=== PATIENT | female | born 1955 | race Caucasian/White ===

== ENCOUNTER 2016-07-12 14:53 | Outpatient (CLI) | payer OTHER ==
[2016-07-12 15:30] LABS: ALT (SGPT) 22 U/L (0-55); AST (SGOT) 23 U/L (5-34); Alkaline Phosphatase 116 U/L (40-150); Anion Gap 13 mmol/L (10-20); BUN (Urea Nitrogen) 11 mg/dL (9.8-20.1); Bilirubin, Total 0.9 mg/dL (0.2-1.2); Calc. Creatinine Clearance 0 mL/min (70-130); Calcium 9.4 mg/dL (7.8-10.44); Carbon Dioxide 25 mmol/L (22-29); Chloride 104 mmol/L (98-107); Estimated GFR-MDRD 70; Globulin 3.8 g/dL (2.4-3.5); Protein, Total 7.8 g/dL (6.0-8.3)
[2016-07-12 16:01] LABS: Hematocrit 42.1 % (36.0-47.0); Mean Platelet Volume 7.6 fL (7.4-10.4); Red Blood Cell (RBC) Count 4.26 mill/uL (4.20-5.40); White Blood Cell (WBC) Count 11.1 thou/uL (4.8-10.8)
[2016-07-12 16:03] LABS: Band 2 % (5-11); Metamyelocyte 0 % (0-0); Neutrophil 62 % (42-75); Reactive Lymphocytes 0 % (0-10)
[2016-07-12 16:04] LABS: Blast 0 % (0-0); Myelocyte 0 % (0-0); Nucleated RBC 0 % (0); Promyelocytes 0 % (0-0)
== END 2016-07-12 14:54 | disposition home or self-care (01) ==
LOC: BURLAB 14:53
PROVIDERS: ATTEND Internal Medicine Rheumatology
DX: M05.79 Rheumatoid arthritis with rheumatoid factor of multiple sites without organ or systems involvement (principal); Z79.899 Other long term (current) drug therapy
CPT/HCPCS: 36415; 80053; 85025

== ENCOUNTER 2016-09-26 10:55 | Outpatient (CLI) | payer OTHER ==
[2016-09-26 11:37] LABS: ALT (SGPT) 22 U/L (0-55); AST (SGOT) 27 U/L (5-34); Albumin 4.1 g/dL (3.4-4.8); Alkaline Phosphatase 117 U/L (40-150); Anion Gap 12 mmol/L (10-20); BUN (Urea Nitrogen) 14 mg/dL (9.8-20.1); Bilirubin, Total 0.7 mg/dL (0.2-1.2); Calc. Creatinine Clearance 0 mL/min (70-130); Calcium 9.6 mg/dL (7.8-10.44); Carbon Dioxide 27 mmol/L (23-31); Chloride 106 mmol/L (98-107); Estimated GFR-MDRD 69; Globulin 3.6 g/dL (2.4-3.5); Glucose 98 mg/dL (80-115); Potassium 3.7 mmol/L (3.5-5.1); Protein, Total 7.7 g/dL (5.8-8.1); Sodium 141 mmol/L (136-145)
[2016-09-26 13:11] LABS: #Basophils 0.1 thou/uL (0.0-0.2); #Eosinphils 0.2 thou/uL (0.0-0.7); #Monocytes 1.2 thou/uL (0.11-0.59); #Neutrophils 3.7 thou/uL (1.40-6.50); %Basophils 0.6 % (0.0-1.0); %Eosinophils 1.7 % (0.0-10.0); %Lymphocytes 49.8 % (21.0-51.0); %Monocytes 11.6 % (0.0-10.0); %Neutrophils 36.3 % (42.0-75.0); Hemoglobin 14.1 g/dL (12.0-16.0); Mean Corpuscular HGB CONC 33.2 g/dL (32.0-36.0); Mean Corpuscular Hemoglobin 32.3 pg (27.0-31.0); Mean Corpuscular Volume 97.1 fl (81.0-99.0); Mean Platelet Volume 8.1 fL (7.4-10.4); Platelet Count 187 thou/uL (130-400); RBC Distribution Width 14.5 % (11.5-14.5); Red Blood Cell (RBC) Count 4.38 mill/uL (4.20-5.40); White Blood Cell (WBC) Count 10.1 thou/uL (4.8-10.8)
== END 2016-09-26 10:56 | disposition home or self-care (01) ==
LOC: BURLAB 10:55
PROVIDERS: ATTEND Internal Medicine Rheumatology
DX: M05.79 Rheumatoid arthritis with rheumatoid factor of multiple sites without organ or systems involvement (principal); Z79.899 Other long term (current) drug therapy
CPT/HCPCS: 36415; 80053; 85025; 85652

== ENCOUNTER 2017-01-17 07:29 | Outpatient (CLI) | payer OTHER ==
[2017-01-17 08:49] LABS: Eosinophils 3 % (0-10); Hemoglobin 13.4 g/dL (12.0-16.0); Lymphocytes 65 % (21-51); MDiff Complete? YES; Mean Corpuscular HGB CONC 34.3 g/dL (32.0-36.0); Mean Corpuscular Hemoglobin 33.3 pg (27.0-31.0); Mean Platelet Volume 7.2 fL (7.4-10.4); Monocytes 7 % (0-10); Neutrophil 25 % (42-75); Platelet Count 166 thou/uL (130-400); RBC Distribution Width 12.8 % (11.5-14.5); Red Blood Cell (RBC) Count 4.02 mill/uL (4.20-5.40); White Blood Cell (WBC) Count 7.7 thou/uL (4.8-10.8)
[2017-01-17 09:20] LABS: ALT (SGPT) 25 U/L (8-55); AST (SGOT) 29 U/L (5-34); Albumin 3.9 g/dL (3.4-4.8); Alkaline Phosphatase 104 U/L (40-150); Anion Gap 14 mmol/L (10-20); BUN (Urea Nitrogen) 12 mg/dL (9.8-20.1); Bilirubin, Total 0.8 mg/dL (0.2-1.2); Calc. Creatinine Clearance 0 mL/min (70-130); Calcium 9.1 mg/dL (7.8-10.44); Carbon Dioxide 26 mmol/L (23-31); Chloride 103 mmol/L (98-107); Estimated GFR-MDRD 76; Globulin 3.1 g/dL (2.4-3.5); Glucose 70 mg/dL (80-115); Potassium 4.2 mmol/L (3.5-5.1); Sodium 139 mmol/L (136-145)
== END 2017-01-17 07:30 | disposition home or self-care (01) ==
LOC: BURLAB 07:29
PROVIDERS: ATTEND Internal Medicine Rheumatology
DX: M05.79 Rheumatoid arthritis with rheumatoid factor of multiple sites without organ or systems involvement (principal); Z79.899 Other long term (current) drug therapy
CPT/HCPCS: 36415; 80053; 85025; 85652

== ENCOUNTER 2017-02-28 17:33 | Emergency (ER) | payer OTHER ==
[2017-02-28] MEDS ORDERED: Ketorolac Tromethamine 30 MG/ML VIAL ONE (17:41)
--- NOTE | 2017-02-28 21:37 | RAD ---
RIGHT LEG TWO VIEWS: 02/28/17 The tibial and fibular shafts appears intact. Sclerotic areas in the distal tibia and fibula have be en seen previously and are presumed to be referable to an old injury. There is some irregularity of the tibial plateau that is indeterminate on these two films. See knee report to follow. IMPRESSION: 1. The bulk of the tibia and fibula appear intact. 2. See knee report for comments regarding tibial plateau. POS: HOME
--- NOTE | 2017-02-28 22:03 | RAD ---
RIGHT KNEE FOUR VIEWS: 02/28/17 There is some sclerosis of the lateral tibial plateau and maybe even a slight amount of depression o f it. On the lateral view, one sees a very subtle vertical line in the proximal tibial shaft that is rather sharp. Also, there seems to be a little discontinuity in the white line of the lateral tibia l plateau on the lateral. A small joint effusion is present. All of these findings worry me about th is being an acute injury to the lateral tibial plateau. This could represent a compression in bones that are somewhat osteopenic. Further imaging is recommended to be certain. IMPRESSION: Findings suggestive of injury to the lateral tibial plateau. Although it is not entirely clear if it is acute or old, given the joint fluid and some of the findings, it should probably be treated as a cute until proven otherwise. CT or MRI of the knee could be helpful. Findings discussed with Dr. Verde at 1940 on 02/28. POS: HOME
--- NOTE | 2017-02-28 22:06 | RAD ---
RIGHT ANKLE THREE VIEWS 02/28/17 Comparison is made with a 08/27 study. Mild sclerosis of the distal tibial is consistent with a prior injury. There also appears to have be en an old injury of the distal fibular shaft. These finding actually have smoothed out some since august study. IMPRESSION: Old changes, but no acute fractures were identified. POS: HOME
--- NOTE | 2017-02-28 23:33 | CT ---
CT OF THE RIGHT KNEE 02/28/[address] of the knee was done for evaluation of abnormal findings on the patient's knee films. Ther e is a history of relatively minor trauma and lateral side pain. Axial slices were acquired, then co jaime and sagittal reconstructions were done. There is a depressed fracture of the lateral tibial plateau. The amount of depression is on the orde r of 5 to 7 mm. There is slight fragmentation of the articular surface. Some sclerotic areas are pre sumed to be compression of the bone. There is a resulting joint effusion that has a fluid-fat level within it, as might be expected. The medial tibial plateau appears intact. IMPRESSION: Depressed fracture of the lateral tibial plateau with involvement of the articular surface. It is a recent injury, as evidenced by the sharp lines and fat-fluid level in the joint fluid. My significant concern is that this happened in a relatively young patient with fairly minimal traum a. There is a prior history of an impacted fracture of the distal tibia and fibula. The findings cou ld be merely due to premature osteopenia. Nevertheless, the findings are unusual in the age group an d further workup of an underlying cause should be considered. Preliminary report discussed with Dr. Verde at 637 on 02/28/17. POS: HOME
== END 2017-02-28 19:10 | disposition home or self-care (01) ==
LOC: BURERS 17:33
DX: S82.141A Displaced bicondylar fracture of right tibia, initial encounter for closed fracture (principal); M06.9 Rheumatoid arthritis, unspecified; X50.1XXA Overexertion from prolonged static or awkward postures, initial encounter
CPT/HCPCS: 96374; J1885

== ENCOUNTER 2017-03-14 09:28 | Inpatient (IN) | payer OTHER ==
[2017-03-14 14:08] VITALS: BMI 26.9
[2017-03-14] MEDS ORDERED: HYDROcodone/Acetaminophen 5/325 mg Tablet PO PRN ×2 (15:04)
[2017-03-14] MEDS ORDERED: ETANERCEPT 50 MG SC SCH (15:30)
[2017-03-14] MEDS: Acetaminophen 500 MG TAB PO PRN (16:46)
[2017-03-14] MEDS ORDERED: Ascorbic Acid 500 mg Chewable Tablet PO SCH (19:15)
[2017-03-14] MEDS ORDERED: Calcium Carbonate + Vit D 1 TAB PO SCH (19:15)
[2017-03-14] MEDS: [UNRECOGNIZED DRUG - OTHER] PO SCH (20:38)
[2017-03-14] MEDS: MANGANESE PO SCH (20:39)
[2017-03-14] MEDS: GLUCOSAMINE PO SCH (20:39)
[2017-03-15] MEDS: Fish Oil 1,000 MG CAP PO SCH (08:45)
[2017-03-15] MEDS: Magnesium Oxide 400 MG TAB PO SCH (08:45)
[2017-03-15] MEDS: Ascorbic Acid 500 mg Chewable Tablet PO SCH (08:45)
[2017-03-15] MEDS: predniSONE 10 MG TAB PO SCH (08:46)
[2017-03-15] MEDS: Enoxaparin Sodium 40 MG/0.4 ML SYRINGE SC SCH (08:46)
[2017-03-15] MEDS: GLUCOSAMINE PO SCH ×2 (08:59→20:33)
[2017-03-15] MEDS: [UNRECOGNIZED DRUG - OTHER] PO SCH ×2 (08:59→20:33)
[2017-03-15] MEDS: MANGANESE PO SCH ×2 (08:59→20:33)
[2017-03-15] MEDS: Acetaminophen 500 MG TAB PO PRN (09:45)
[2017-03-15] MEDS ORDERED: Docusate 100 MG CAP PO SCH (10:00)
[2017-03-15] MEDS: Docusate 100 MG CAP PO SCH (20:32)
[2017-03-16] MEDS: Ascorbic Acid 500 mg Chewable Tablet PO SCH (08:00)
[2017-03-16] MEDS: Acetaminophen 500 MG TAB PO PRN (08:02)
[2017-03-16] MEDS: Docusate 100 MG CAP PO SCH ×2 (08:02→20:36)
[2017-03-16] MEDS: predniSONE 10 MG TAB PO SCH (08:03)
[2017-03-16] MEDS: Magnesium Oxide 400 MG TAB PO SCH (08:03)
[2017-03-16] MEDS: Fish Oil 1,000 MG CAP PO SCH (08:03)
[2017-03-16] MEDS: MANGANESE PO SCH ×2 (08:04→20:37)
[2017-03-16] MEDS: Enoxaparin Sodium 40 MG/0.4 ML SYRINGE SC SCH (08:04)
[2017-03-16] MEDS: GLUCOSAMINE PO SCH ×2 (08:04→20:37)
[2017-03-16] MEDS: [UNRECOGNIZED DRUG - OTHER] PO SCH ×2 (08:05→20:37)
--- NOTE | 2017-03-16 13:40 | HP ---
CHIEF COMPLAINT: Inpatient rehab for physical and occupational therapy. HISTORY OF PRESENT ILLNESS: Ms. Santiago is a very pleasant 61-year-old female with history of rheumatoid arthritis, on methotrexate and Enbrel. While at work at [employer] on 02/28, while trying to move a patient from bed to chair with a gait belt, her patient had left-sided stroke. Ms. Santiago was unable to get her to the wheelchair as the patient made no effort to push with her right leg. Ms. Santiago aborted the effort to place the patient on a wheelchair, but as she turned, her right knee got caught between the railing and the full weight of the patient's leg. She felt and heard a pop on her right knee with immediate pain and swelling laterally. At that point , she could not apply full weight on the right leg. She was taken to the emergency room, where regular films showed an abnormality and subsequent CT scan then showed a tibial plateau fracture laterally. Ms. Santiaog underwent open reduction and internal fixation of the right tibial plateau fracture on . She is being admitted for physical and occupational therapy. She is nonweightbearing on the affected extremity. She has decreased endurance strength, unsteady gait and poor balance. She is able to stand with a rolling walker. Today, she ambulated about 94 feet with contact guard assist. Patient requires Tylenol for pain control; she refused to take strong narcotics. PAST MEDICAL HISTORY: 1. Rheumatoid arthritis. 2. Recurrent urinary tract infection. 3. Depression. PAST SURGICAL HISTORY: 1. Hysterectomy in 1999. 2. Bilateral tubal ligation. 3. Bladder suspension. 4. Open reduction of right tibial plateau fracture. FAMILY HISTORY: Father of unknown cause. Mother at 91 years old due to hypertension and heart disease complication. She has 3 sisters, one sister was diagnosed of lung cancer with liver metastasis. Spouse due to lung cancer. She has 2 healthy sons. SOCIAL HISTORY: The patient denies tobacco or alcohol use. The patient is , in 05/2015. 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 HOME MEDICATIONS: 1. Ibuprofen 200 mg every 6 hours p.r.n. for pain. 2. Enbrel. 3. Methotrexate. 4. Prednisone 10 mg daily. 5. Hydrocodone 5/325 one tablet b.i.d. to t.i.d. p.r.n. for pain. ALLERGIES: 1. CIPRO. 2. SULFA. 3. TRAMADOL causing nausea and vomiting. REVIEW OF SYSTEMS: GENERAL: Patient denies fever, chills, weight loss or fatigue. EYES: Positive for blurred vision, wears glasses. CARDIOVASCULAR: No chest pain, no palpitations, no arrhythmia. PULMONARY: No shortness of breath, no cough. GASTROINTESTINAL: No nausea, vomiting or diarrhea. Positive for constipation. GENITOURINARY: Positive for recurrent episodes of UTI. Denies hematuria. MUSCULOSKELETAL: Positive for right leg injury requiring surgery. Positive for pain in the right lower extremity. Positive for swelling of the right lower extremity. PSYCHIATRIC: Mild depression. No anxiety. PHYSICAL EXAMINATION: VITAL SIGNS: Blood pressure of 119/56, temperature of 99, pulse of 67, respiratory rate 18 and O2 sat 97%. GENERAL: The patient is alert, oriented, not in respiratory distress. HEENT: Normocephalic and atraumatic. Pupils are equally reactive to light. NECK: Supple. Negative for lymphadenopathy, negative for JVD. CHEST AND LUNGS: Symmetrical expansion. Clear to auscultation. HEART: Regular rate and rhythm. Negative for murmur. ABDOMEN: Flat, soft and nontender. Normoactive bowel sounds. No rebound tenderness. No CVA tenderness. MUSCULOSKELETAL: Right lower extremity is immobilized with a knee brace. Positive for swelling of the right foot. Positive for intact pulses. Positive for 2 seconds capillary refill. LABORATORY AND IMAGING DATA: Reviewed. ASSESSMENT: 1. Closed fracture of the right tibial plateau, status post open reduction and internal fixation. 2. Rheumatoid arthritis. 3. Depression. 4. Recurrent urinary tract infection. PLAN: The patient is being admitted for physical and occupational therapy. She is nonweightbearing on her right lower extremity. Prognosis for significant improvement with reasonable time appears good. She will participate with PT to address strength, range of motion, transfer training, gait transfers and safety training with progression to home exercises. She will participate with Occupational Therapy to address ADLs. We will reconcile her hospital medication and adjust dosage prior to her discharge. Case management to address how the patient can safely be discharged in a timely manner. Anticipate discharge to home in 1-2 weeks. MICHELLE
[2017-03-17 06:11] LABS: Hemoglobin 11.6 g/dL (12.0-16.0); Platelet Count 224 thou/uL (130-400)
[2017-03-17 06:19] LABS: Calc. Creatinine Clearance 93 mL/min (70-130); Estimated GFR-MDRD Greater than 90
[2017-03-17] MEDS: Acetaminophen 500 MG TAB PO PRN (08:01)
[2017-03-17] MEDS: Docusate 100 MG CAP PO SCH ×2 (08:02→20:37)
[2017-03-17] MEDS: Fish Oil 1,000 MG CAP PO SCH (08:02)
[2017-03-17] MEDS: Ascorbic Acid 500 mg Chewable Tablet PO SCH (08:03)
[2017-03-17] MEDS: predniSONE 10 MG TAB PO SCH (08:03)
[2017-03-17] MEDS: Magnesium Oxide 400 MG TAB PO SCH (08:04)
[2017-03-17] MEDS: Enoxaparin Sodium 40 MG/0.4 ML SYRINGE SC SCH (08:05)
[2017-03-17] MEDS: GLUCOSAMINE PO SCH ×2 (08:05→20:38)
[2017-03-17] MEDS: MANGANESE PO SCH ×2 (08:05→20:38)
[2017-03-17] MEDS: [UNRECOGNIZED DRUG - OTHER] PO SCH ×2 (08:06→20:38)
[2017-03-17] MEDS ORDERED: Polyethylene Glycol OPTH DROP 15 ML BOT EA EYE PRN (17:32)
[2017-03-17] MEDS ORDERED: Zolpidem Tartrate 5 MG TAB PO SCH (17:45)
[2017-03-18] MEDS: Ascorbic Acid 500 mg Chewable Tablet PO SCH (08:42)
[2017-03-18] MEDS: Docusate 100 MG CAP PO SCH ×2 (08:43→20:40)
[2017-03-18] MEDS: Magnesium Oxide 400 MG TAB PO SCH (08:44)
[2017-03-18] MEDS: Fish Oil 1,000 MG CAP PO SCH (08:44)
[2017-03-18] MEDS: predniSONE 10 MG TAB PO SCH (08:45)
[2017-03-18] MEDS: Enoxaparin Sodium 40 MG/0.4 ML SYRINGE SC SCH (08:46)
[2017-03-18] MEDS: [UNRECOGNIZED DRUG - OTHER] PO SCH ×2 (08:46→20:42)
[2017-03-18] MEDS: Acetaminophen 500 MG TAB PO PRN ×2 (08:46→20:40)
[2017-03-18] MEDS: MANGANESE PO SCH ×2 (08:52→20:41)
[2017-03-18] MEDS: GLUCOSAMINE PO SCH ×2 (08:52→20:41)
[2017-03-18] MEDS ORDERED: FLU VACC QS2017-18 36 mo. & older 0.5 ML SYRINGE IM ONE (09:00)
[2017-03-19 06:13] LABS: Calc. Creatinine Clearance 88 mL/min (70-130); Estimated GFR-MDRD Greater than 90
[2017-03-19 06:26] LABS: Hemoglobin 12.5 g/dL (12.0-16.0); Platelet Count 223 thou/uL (130-400)
[2017-03-19] MEDS: predniSONE 10 MG TAB PO SCH (08:25)
[2017-03-19] MEDS: Magnesium Oxide 400 MG TAB PO SCH (08:25)
[2017-03-19] MEDS: Docusate 100 MG CAP PO SCH ×2 (08:25→20:40)
[2017-03-19] MEDS: Ascorbic Acid 500 mg Chewable Tablet PO SCH (08:25)
[2017-03-19] MEDS: Fish Oil 1,000 MG CAP PO SCH (08:25)
[2017-03-19] MEDS: Enoxaparin Sodium 40 MG/0.4 ML SYRINGE SC SCH (08:26)
[2017-03-19] MEDS: [UNRECOGNIZED DRUG - OTHER] PO SCH ×2 (08:27→20:39)
[2017-03-19] MEDS: GLUCOSAMINE PO SCH ×2 (08:28→20:37)
[2017-03-19] MEDS: MANGANESE PO SCH ×2 (08:28→20:37)
[2017-03-19] MEDS: Acetaminophen 500 MG TAB PO PRN ×2 (09:11→20:40)
[2017-03-19] MEDS: METHOTREXATE SODIUM 50 MG IM SCH (11:59)
[2017-03-19] MEDS: ETANERCEPT 50 MG SC SCH (12:00)
[2017-03-19] MEDS ORDERED: Acetaminophen 500 MG TAB ONE (20:31)
[2017-03-20] MEDS: Enoxaparin Sodium 40 MG/0.4 ML SYRINGE SC SCH (08:16)
[2017-03-20] MEDS: [UNRECOGNIZED DRUG - OTHER] PO SCH ×2 (08:16→20:51)
[2017-03-20] MEDS: Docusate 100 MG CAP PO SCH ×2 (08:17→20:51)
[2017-03-20] MEDS: Fish Oil 1,000 MG CAP PO SCH (08:17)
[2017-03-20] MEDS: Ascorbic Acid 500 mg Chewable Tablet PO SCH (08:17)
[2017-03-20] MEDS: Magnesium Oxide 400 MG TAB PO SCH (08:17)
[2017-03-20] MEDS: predniSONE 10 MG TAB PO SCH (08:17)
[2017-03-20] MEDS: GLUCOSAMINE PO SCH ×2 (08:18→20:51)
[2017-03-20] MEDS: MANGANESE PO SCH ×2 (08:18→20:51)
[2017-03-20] MEDS ORDERED: Acetaminophen 500 MG TAB ONE ×2 (10:07)
[2017-03-20] MEDS: Acetaminophen 500 MG TAB PO PRN ×2 (10:09→20:51)
[2017-03-21 05:31] LABS: Hemoglobin 11.6 g/dL (12.0-16.0); Platelet Count 193 thou/uL (130-400)
[2017-03-21 06:13] LABS: Calc. Creatinine Clearance 93 mL/min (70-130); Estimated GFR-MDRD Greater than 90
[2017-03-21] MEDS: Ascorbic Acid 500 mg Chewable Tablet PO SCH (08:31)
[2017-03-21] MEDS: Magnesium Oxide 400 MG TAB PO SCH (08:32)
[2017-03-21] MEDS: predniSONE 10 MG TAB PO SCH (08:32)
[2017-03-21] MEDS: Docusate 100 MG CAP PO SCH ×2 (08:32→20:46)
[2017-03-21] MEDS: Fish Oil 1,000 MG CAP PO SCH (08:33)
[2017-03-21] MEDS: [UNRECOGNIZED DRUG - OTHER] PO SCH ×2 (08:33→20:45)
[2017-03-21] MEDS: MANGANESE PO SCH ×2 (08:34→20:45)
[2017-03-21] MEDS: Enoxaparin Sodium 40 MG/0.4 ML SYRINGE SC SCH (08:34)
[2017-03-21] MEDS: GLUCOSAMINE PO SCH ×2 (08:34→20:45)
[2017-03-21] MEDS: Acetaminophen 500 MG TAB PO PRN ×2 (08:35→20:46)
[2017-03-22] MEDS: Enoxaparin Sodium 40 MG/0.4 ML SYRINGE SC SCH (09:53)
[2017-03-22] MEDS: Fish Oil 1,000 MG CAP PO SCH (09:55)
[2017-03-22] MEDS: Magnesium Oxide 400 MG TAB PO SCH (09:55)
[2017-03-22] MEDS: Docusate 100 MG CAP PO SCH ×2 (09:55→20:27)
[2017-03-22] MEDS: predniSONE 10 MG TAB PO SCH (09:55)
[2017-03-22] MEDS: Ascorbic Acid 500 mg Chewable Tablet PO SCH (09:55)
[2017-03-22] MEDS: GLUCOSAMINE PO SCH ×2 (10:01→20:27)
[2017-03-22] MEDS: [UNRECOGNIZED DRUG - OTHER] PO SCH ×2 (10:01→20:27)
[2017-03-22] MEDS: MANGANESE PO SCH ×2 (10:01→20:27)
[2017-03-22] MEDS: Acetaminophen 500 MG TAB PO PRN (10:06)
[2017-03-23 05:20] LABS: Hemoglobin 11.6 g/dL (12.0-16.0); Platelet Count 189 thou/uL (130-400)
[2017-03-23 05:57] LABS: Calc. Creatinine Clearance 94 mL/min (70-130); Estimated GFR-MDRD Greater than 90
[2017-03-23] MEDS: Docusate 100 MG CAP PO SCH ×2 (08:44→20:51)
[2017-03-23] MEDS: predniSONE 10 MG TAB PO SCH (08:44)
[2017-03-23] MEDS: Enoxaparin Sodium 40 MG/0.4 ML SYRINGE SC SCH (08:44)
[2017-03-23] MEDS: Magnesium Oxide 400 MG TAB PO SCH (08:45)
[2017-03-23] MEDS: Fish Oil 1,000 MG CAP PO SCH (08:46)
[2017-03-23] MEDS: Ascorbic Acid 500 mg Chewable Tablet PO SCH (08:46)
[2017-03-23] MEDS: [UNRECOGNIZED DRUG - OTHER] PO SCH ×2 (08:49→20:51)
[2017-03-23] MEDS: GLUCOSAMINE PO SCH ×2 (08:50→20:51)
[2017-03-23] MEDS: MANGANESE PO SCH ×2 (08:50→20:51)
[2017-03-23] MEDS: Acetaminophen 500 MG TAB PO PRN ×2 (10:05→22:36)
--- NOTE | 2017-03-23 15:47 | RAD ---
RIGHT ANKLE 3 VIEWS: DATE: 03/23/17. FINDINGS: Comparison is made with the prior ankle film dated 02/28/17, as well as an older study dated 08/27/16. Comment has been made previously about an area of subtle sclerosis in the distal tibia and fibula co nsistent with old injury. It is still present but has slowly diminished over time. What I see toda y all looks like the residual of prior injury. There are no findings strongly suggestive of acute f racture. Narrowing of the tibiotalar joint is about the same as usual. A calcaneal spur was noted. IMPRESSION: Old posttraumatic changes in the distal tibia and fibula, but no acute finding. POS: HOME
[2017-03-24] MEDS: Ascorbic Acid 500 mg Chewable Tablet PO SCH (08:07)
[2017-03-24] MEDS: Docusate 100 MG CAP PO SCH ×2 (08:08→21:17)
[2017-03-24] MEDS: Fish Oil 1,000 MG CAP PO SCH (08:09)
[2017-03-24] MEDS: predniSONE 10 MG TAB PO SCH (08:09)
[2017-03-24] MEDS: Acetaminophen 500 MG TAB PO PRN (08:10)
[2017-03-24] MEDS: Magnesium Oxide 400 MG TAB PO SCH (08:10)
[2017-03-24] MEDS: Enoxaparin Sodium 40 MG/0.4 ML SYRINGE SC SCH (08:10)
[2017-03-24] MEDS: GLUCOSAMINE PO SCH ×2 (08:11→21:18)
[2017-03-24] MEDS: MANGANESE PO SCH ×2 (08:11→21:18)
[2017-03-24] MEDS: [UNRECOGNIZED DRUG - OTHER] PO SCH ×2 (08:12→21:17)
[2017-03-25 05:24] LABS: Hemoglobin 11.5 g/dL (12.0-16.0); Platelet Count 183 thou/uL (130-400)
[2017-03-25 05:40] LABS: Calc. Creatinine Clearance 91 mL/min (70-130); Estimated GFR-MDRD Greater than 90
[2017-03-25] MEDS: Ascorbic Acid 500 mg Chewable Tablet PO SCH (07:58)
[2017-03-25] MEDS: Docusate 100 MG CAP PO SCH ×2 (08:00→20:41)
[2017-03-25] MEDS: Magnesium Oxide 400 MG TAB PO SCH (08:01)
[2017-03-25] MEDS: Fish Oil 1,000 MG CAP PO SCH (08:01)
[2017-03-25] MEDS: Enoxaparin Sodium 40 MG/0.4 ML SYRINGE SC SCH (08:01)
[2017-03-25] MEDS: predniSONE 10 MG TAB PO SCH (08:02)
[2017-03-25] MEDS: Acetaminophen 500 MG TAB PO PRN ×2 (08:03→20:41)
[2017-03-25] MEDS: GLUCOSAMINE PO SCH ×2 (08:04→20:44)
[2017-03-25] MEDS: MANGANESE PO SCH ×2 (08:04→20:44)
[2017-03-25] MEDS: [UNRECOGNIZED DRUG - OTHER] PO SCH ×2 (08:04→20:43)
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
[2017-03-26] MEDS ORDERED: Acetaminophen 500 MG TAB ONE (07:33)
[2017-03-26] MEDS: Acetaminophen 500 MG TAB PO PRN ×2 (07:40→20:53)
[2017-03-26] MEDS: [UNRECOGNIZED DRUG - OTHER] PO SCH ×2 (07:41→20:52)
[2017-03-26] MEDS: Docusate 100 MG CAP PO SCH ×3 (07:45→20:51)
[2017-03-26] MEDS: Fish Oil 1,000 MG CAP PO SCH ×2 (07:45→13:11)
[2017-03-26] MEDS: Enoxaparin Sodium 40 MG/0.4 ML SYRINGE SC SCH ×2 (07:45→13:14)
[2017-03-26] MEDS: Ascorbic Acid 500 mg Chewable Tablet PO SCH ×2 (07:45→13:11)
[2017-03-26] MEDS: MANGANESE PO SCH ×3 (07:46→20:51)
[2017-03-26] MEDS: GLUCOSAMINE PO SCH ×3 (07:46→20:51)
[2017-03-26] MEDS: Magnesium Oxide 400 MG TAB PO SCH ×2 (07:46→13:12)
[2017-03-26] MEDS: predniSONE 10 MG TAB PO SCH ×2 (07:46→13:12)
[2017-03-26] MEDS: ETANERCEPT 50 MG SC SCH (13:21)
[2017-03-26] MEDS: METHOTREXATE SODIUM 50 MG IM SCH (13:22)
[2017-03-27 05:27] LABS: Hemoglobin 11.3 g/dL (12.0-16.0); Platelet Count 172 thou/uL (130-400)
[2017-03-27 05:31] LABS: Calc. Creatinine Clearance 96 mL/min (70-130); Estimated GFR-MDRD Greater than 90
[2017-03-27] MEDS: Fish Oil 1,000 MG CAP PO SCH (08:35)
[2017-03-27] MEDS: MANGANESE PO SCH ×2 (08:35→20:51)
[2017-03-27] MEDS: Docusate 100 MG CAP PO SCH ×2 (08:35→20:51)
[2017-03-27] MEDS: Ascorbic Acid 500 mg Chewable Tablet PO SCH (08:35)
[2017-03-27] MEDS: Magnesium Oxide 400 MG TAB PO SCH (08:35)
[2017-03-27] MEDS: GLUCOSAMINE PO SCH ×2 (08:35→20:51)
[2017-03-27] MEDS: predniSONE 10 MG TAB PO SCH (08:35)
[2017-03-27] MEDS: [UNRECOGNIZED DRUG - OTHER] PO SCH ×2 (08:36→20:52)
[2017-03-27] MEDS: Enoxaparin Sodium 40 MG/0.4 ML SYRINGE SC SCH (08:36)
[2017-03-27] MEDS: Acetaminophen 500 MG TAB PO PRN (08:41)
[2017-03-27] MEDS ORDERED: FLU VACC QS2017-18 36 mo. & older 0.5 ML SYRINGE IM ONE (16:45)
[2017-03-28] MEDS: Acetaminophen 500 MG TAB PO PRN ×2 (09:01→20:53)
[2017-03-28] MEDS: Enoxaparin Sodium 40 MG/0.4 ML SYRINGE SC SCH (09:01)
[2017-03-28] MEDS: Ascorbic Acid 500 mg Chewable Tablet PO SCH (09:02)
[2017-03-28] MEDS: Docusate 100 MG CAP PO SCH ×2 (09:03→20:53)
[2017-03-28] MEDS: predniSONE 10 MG TAB PO SCH (09:04)
[2017-03-28] MEDS: Fish Oil 1,000 MG CAP PO SCH (09:04)
[2017-03-28] MEDS: Magnesium Oxide 400 MG TAB PO SCH (09:04)
[2017-03-28] MEDS: [UNRECOGNIZED DRUG - OTHER] PO SCH ×2 (09:07→20:53)
[2017-03-28] MEDS: MANGANESE PO SCH ×2 (09:08→20:54)
[2017-03-28] MEDS: GLUCOSAMINE PO SCH ×2 (09:08→20:54)
[2017-03-29 06:32] LABS: Hemoglobin 11.5 g/dL (12.0-16.0); Platelet Count 194 thou/uL (130-400)
[2017-03-29 06:58] LABS: Calc. Creatinine Clearance 90 mL/min (70-130); Estimated GFR-MDRD Greater than 90
[2017-03-29] MEDS: Ascorbic Acid 500 mg Chewable Tablet PO SCH (08:58)
[2017-03-29] MEDS: Acetaminophen 500 MG TAB PO PRN ×2 (08:59→20:51)
[2017-03-29] MEDS: predniSONE 10 MG TAB PO SCH (08:59)
[2017-03-29] MEDS: Docusate 100 MG CAP PO SCH ×2 (08:59→20:51)
[2017-03-29] MEDS: Enoxaparin Sodium 40 MG/0.4 ML SYRINGE SC SCH (08:59)
[2017-03-29] MEDS: Fish Oil 1,000 MG CAP PO SCH (08:59)
[2017-03-29] MEDS: Magnesium Oxide 400 MG TAB PO SCH (08:59)
[2017-03-29] MEDS: [UNRECOGNIZED DRUG - OTHER] PO SCH ×2 (09:03→20:53)
[2017-03-29] MEDS: GLUCOSAMINE PO SCH ×2 (09:04→20:52)
[2017-03-29] MEDS: MANGANESE PO SCH ×2 (09:04→20:52)
[2017-03-30] MEDS: Magnesium Oxide 400 MG TAB PO SCH (08:36)
[2017-03-30] MEDS: Fish Oil 1,000 MG CAP PO SCH (08:37)
[2017-03-30] MEDS: Docusate 100 MG CAP PO SCH ×2 (08:39→20:36)
[2017-03-30] MEDS: Ascorbic Acid 500 mg Chewable Tablet PO SCH (08:39)
[2017-03-30] MEDS: Acetaminophen 500 MG TAB PO PRN ×2 (08:39→20:36)
[2017-03-30] MEDS: predniSONE 10 MG TAB PO SCH (08:40)
[2017-03-30] MEDS: [UNRECOGNIZED DRUG - OTHER] PO SCH ×2 (08:40→20:36)
[2017-03-30] MEDS: Enoxaparin Sodium 40 MG/0.4 ML SYRINGE SC SCH (08:40)
[2017-03-30] MEDS: GLUCOSAMINE PO SCH ×2 (08:41→20:38)
[2017-03-30] MEDS: MANGANESE PO SCH ×2 (08:41→20:38)
[2017-03-31 06:00] LABS: Hemoglobin 11.7 g/dL (12.0-16.0); Platelet Count 192 thou/uL (130-400)
[2017-03-31] MEDS ORDERED: Acetaminophen 500 MG TAB ONE (08:16)
[2017-03-31] MEDS: Ascorbic Acid 500 mg Chewable Tablet PO SCH (08:28)
[2017-03-31] MEDS: Docusate 100 MG CAP PO SCH ×2 (08:29→20:28)
[2017-03-31] MEDS: predniSONE 10 MG TAB PO SCH (08:29)
[2017-03-31] MEDS: Fish Oil 1,000 MG CAP PO SCH (08:29)
[2017-03-31] MEDS: Enoxaparin Sodium 40 MG/0.4 ML SYRINGE SC SCH (08:29)
[2017-03-31] MEDS: Acetaminophen 500 MG TAB PO PRN (08:29)
[2017-03-31] MEDS: Magnesium Oxide 400 MG TAB PO SCH (08:29)
[2017-03-31] MEDS: [UNRECOGNIZED DRUG - OTHER] PO SCH ×2 (08:30→20:28)
[2017-03-31] MEDS: MANGANESE PO SCH ×2 (08:31→20:28)
[2017-03-31] MEDS: GLUCOSAMINE PO SCH ×2 (08:31→20:28)
[2017-04-01] MEDS: Ascorbic Acid 500 mg Chewable Tablet PO SCH (08:35)
[2017-04-01] MEDS: Fish Oil 1,000 MG CAP PO SCH (08:35)
[2017-04-01] MEDS: Magnesium Oxide 400 MG TAB PO SCH (08:35)
[2017-04-01] MEDS: Acetaminophen 500 MG TAB PO PRN ×2 (08:35→20:40)
[2017-04-01] MEDS: predniSONE 10 MG TAB PO SCH (08:35)
[2017-04-01] MEDS: Docusate 100 MG CAP PO SCH ×2 (08:36→20:40)
[2017-04-01] MEDS: Enoxaparin Sodium 40 MG/0.4 ML SYRINGE SC SCH (08:36)
[2017-04-01] MEDS: [UNRECOGNIZED DRUG - OTHER] PO SCH ×2 (08:36→20:40)
[2017-04-01] MEDS: MANGANESE PO SCH ×2 (08:37→20:40)
[2017-04-01] MEDS: GLUCOSAMINE PO SCH ×2 (08:37→20:40)
[2017-04-02 06:19] LABS: Platelet Count 163 thou/uL (130-400)
[2017-04-02 06:29] LABS: Calc. Creatinine Clearance 91 mL/min (70-130); Estimated GFR-MDRD Greater than 90
[2017-04-02] MEDS: [UNRECOGNIZED DRUG - OTHER] PO SCH ×2 (08:26→20:40)
[2017-04-02] MEDS: Magnesium Oxide 400 MG TAB PO SCH (08:27)
[2017-04-02] MEDS: GLUCOSAMINE PO SCH ×2 (08:27→20:41)
[2017-04-02] MEDS: MANGANESE PO SCH ×2 (08:27→20:41)
[2017-04-02] MEDS: Ascorbic Acid 500 mg Chewable Tablet PO SCH (08:28)
[2017-04-02] MEDS: Docusate 100 MG CAP PO SCH ×2 (08:28→20:41)
[2017-04-02] MEDS: Enoxaparin Sodium 40 MG/0.4 ML SYRINGE SC SCH (08:28)
[2017-04-02] MEDS: Fish Oil 1,000 MG CAP PO SCH (08:28)
[2017-04-02] MEDS: predniSONE 10 MG TAB PO SCH (08:28)
[2017-04-02] MEDS: Acetaminophen 500 MG TAB PO PRN ×2 (10:48→20:41)
[2017-04-02] MEDS: ETANERCEPT 50 MG SC SCH (12:02)
[2017-04-02] MEDS: METHOTREXATE SODIUM 50 MG IM SCH (12:05)
[2017-04-02] MEDS ORDERED: Gabapentin 100 MG CAP PO SCH (20:15)
[2017-04-03] MEDS: MANGANESE PO SCH ×2 (08:17→20:36)
[2017-04-03] MEDS: GLUCOSAMINE PO SCH ×2 (08:17→20:36)
[2017-04-03] MEDS: [UNRECOGNIZED DRUG - OTHER] PO SCH ×2 (08:18→20:36)
[2017-04-03] MEDS: Ascorbic Acid 500 mg Chewable Tablet PO SCH (08:19)
[2017-04-03] MEDS: Docusate 100 MG CAP PO SCH ×2 (08:19→20:37)
[2017-04-03] MEDS: Fish Oil 1,000 MG CAP PO SCH (08:19)
[2017-04-03] MEDS: Enoxaparin Sodium 40 MG/0.4 ML SYRINGE SC SCH (08:20)
[2017-04-03] MEDS: predniSONE 10 MG TAB PO SCH (08:20)
[2017-04-03] MEDS: Magnesium Oxide 400 MG TAB PO SCH (08:20)
[2017-04-03] MEDS: Acetaminophen 500 MG TAB PO PRN (20:37)
[2017-04-04 06:02] LABS: Calc. Creatinine Clearance 96 mL/min (70-130); Estimated GFR-MDRD Greater than 90; Hemoglobin 11.5 g/dL (12.0-16.0); Platelet Count 173 thou/uL (130-400)
[2017-04-04] MEDS: predniSONE 10 MG TAB PO SCH (08:31)
[2017-04-04] MEDS: Ascorbic Acid 500 mg Chewable Tablet PO SCH (08:32)
[2017-04-04] MEDS: Acetaminophen 500 MG TAB PO PRN (08:32)
[2017-04-04] MEDS: Docusate 100 MG CAP PO SCH ×2 (08:32→21:16)
[2017-04-04] MEDS: Fish Oil 1,000 MG CAP PO SCH (08:32)
[2017-04-04] MEDS: Magnesium Oxide 400 MG TAB PO SCH (08:32)
[2017-04-04] MEDS: MANGANESE PO SCH ×2 (08:33→21:17)
[2017-04-04] MEDS: Enoxaparin Sodium 40 MG/0.4 ML SYRINGE SC SCH (08:33)
[2017-04-04] MEDS: [UNRECOGNIZED DRUG - OTHER] PO SCH ×2 (08:33→21:16)
[2017-04-04] MEDS: GLUCOSAMINE PO SCH ×2 (08:33→21:17)
[2017-04-05] MEDS: [UNRECOGNIZED DRUG - OTHER] PO SCH ×2 (08:24→22:02)
[2017-04-05] MEDS: Magnesium Oxide 400 MG TAB PO SCH (08:25)
[2017-04-05] MEDS: predniSONE 10 MG TAB PO SCH (08:25)
[2017-04-05] MEDS: Ascorbic Acid 500 mg Chewable Tablet PO SCH (08:25)
[2017-04-05] MEDS: GLUCOSAMINE PO SCH ×2 (08:25→22:02)
[2017-04-05] MEDS: Docusate 100 MG CAP PO SCH ×2 (08:25→22:02)
[2017-04-05] MEDS: MANGANESE PO SCH ×2 (08:25→22:02)
[2017-04-05] MEDS: Enoxaparin Sodium 40 MG/0.4 ML SYRINGE SC SCH (08:26)
[2017-04-05] MEDS: Fish Oil 1,000 MG CAP PO SCH (08:26)
[2017-04-06 05:29] LABS: Hemoglobin 11.4 g/dL (12.0-16.0); Platelet Count 164 thou/uL (130-400)
[2017-04-06 05:36] LABS: Calc. Creatinine Clearance 94 mL/min (70-130); Estimated GFR-MDRD Greater than 90
[2017-04-06 06:20] VITALS: BP 100/64; TEMP 97.3
[2017-04-06] MEDS: GLUCOSAMINE PO SCH (08:05)
[2017-04-06] MEDS: MANGANESE PO SCH (08:05)
[2017-04-06] MEDS: [UNRECOGNIZED DRUG - OTHER] PO SCH (08:06)
[2017-04-06] MEDS: Ascorbic Acid 500 mg Chewable Tablet PO SCH (08:07)
[2017-04-06] MEDS: Acetaminophen 500 MG TAB PO PRN (08:07)
[2017-04-06] MEDS: predniSONE 10 MG TAB PO SCH (08:07)
[2017-04-06] MEDS: Fish Oil 1,000 MG CAP PO SCH (08:07)
[2017-04-06] MEDS: Docusate 100 MG CAP PO SCH (08:07)
[2017-04-06] MEDS: Magnesium Oxide 400 MG TAB PO SCH (08:07)
[2017-04-06] MEDS: Enoxaparin Sodium 40 MG/0.4 ML SYRINGE SC SCH (08:08)
--- NOTE | 2017-04-08 13:14 | DIS ---
DATE OF DISCHARGE: 04/06/2017 FINAL DIAGNOSES: 1. Closed fracture to right tibial plateau, status post open reduction and internal fixation. 2. History of rheumatoid arthritis. 3. Depression. 4. Recurrent urinary tract infection. HISTORY OF PRESENT ILLNESS/COURSE IN THE [place]: Ms. Santiago is a very pleasant 61-year-old female wi th history of rheumatoid arthritis on methotrexate and Enbrel. While at work at [employer] on 02/28, patient was trying to mobilization from bed to chair with a gait belt, the p gerry had left-sided stroke and was unable to get her to the wheelchair as the patient has no effor t to push her right leg. Ms. Santiago aborted effort and try to transfer her to the chair, but she t urned her right knee got caught between the railing and full weight of patient's leg. She felt and heard a pop on her right knee with immediate pain and swelling. She was unable to apply any full we ight on her right leg. She was then brought to the emergency room and a CT showing tibial plateau f racture laterally. Ms. Santiago underwent open reduction and internal fixation of the right tibial p lateau on 03/12. She was admitted on 03/14/2017 at [facility] for phys ical and occupational therapy. During her admission, she has decreased endurance and strength. She had an unsteady gait and poor balance. She was placed on nonweightbearing on her right lower extre mity and was advised to use rolling walker for ambulation. Patient did well during her physical and occupational therapy. Prior to her discharge, she was ambulating between 220 feet using rolling wa lker with nonweightbearing status of right lower extremity. She was independent with her transfers. She did not require any strong pain medication. DISPOSITION: Discharge to home with home health using [facility] PT and occupational t herapy. She will be under [facility] for provider services. DIET: Regular. ACTIVITIES: Orthopedic limitations, see under instruction. INSTRUCTIONS: 1. Continue nonweightbearing on right lower extremity. She will continue to wear hinged knee brace . 2. Follow up with Dr. Wisdom in 1 month. MEDICATIONS: 1. Tylenol 1000 mg every 6 hours p.r.n. for pain. 2. Gabapentin 100 mg at bedtime. 3. Ambien 5 mg daily p.r.n. for insomnia. 4. Enbrel. 5. Methotrexate. 6. Prednisone 10 mg daily.
== END 2017-04-06 14:18 | disposition home health service, planned readmission (86) | DRG 561 ==
LOC: BURMED 12:40
PROVIDERS: ADMIT Family Medicine; ATTEND Family Medicine
DX: S82.141D Displaced bicondylar fracture of right tibia, subsequent encounter for closed fracture with routine healing (principal); F32.9 Major depressive disorder, single episode, unspecified; G47.00 Insomnia, unspecified; M06.9 Rheumatoid arthritis, unspecified; Z87.440 Personal history of urinary (tract) infections; Z99.3 Dependence on wheelchair; Z88.2 Allergy status to sulfonamides; Z88.5 Allergy status to narcotic agent; Z88.1 Allergy status to other antibiotic agents; Z82.49 Family history of ischemic heart disease and other diseases of the circulatory system; Z80.1 Family history of malignant neoplasm of trachea, bronchus and lung; Z80.0 Family history of malignant neoplasm of digestive organs; W19.XXXD Unspecified fall, subsequent encounter; Y92.230 Patient room in hospital as the place of occurrence of the external cause
CPT/HCPCS: 36415; 82565; 85014; 85018; 85049; 90471; 90682; G0008; G8978-GP-CK; G8979-GP-CH; G8987-GO-CJ; G8988-GO-CI; J1650; J7512; Q2036

== ENCOUNTER 2017-07-08 08:55 | Outpatient (CLI) | payer OTHER ==
--- NOTE | 2017-07-08 21:44 | CT ---
CT OF THE ABDOMEN WITH AND WITHOUT CONTRAST WITH ADDITIONAL REGIONAL RECONSTRUCTIONS: Date: 07-08-17 Comparison: 2010 study that showed multiple hepatic cysts. Today's exam was done for follow up of the se lesions. I do not know if there have been any other studies in the interim. A noncontrast scan was done initially. Venous and arterial phase scans were then done afterwards. The lung bases are clear. The liver again shows multiple water density structures throughout consiste nt with hepatic cysts. All are well defined. There is no enhancement within them or at the margins. S mariya the 2010 scan they have become slightly more numerous and all cysts seen previously have enlarge d, some significantly. The largest cyst is now in the dome of the liver on the right side measuring 5 .2 cm wide. Cyst in the left lobe are a bit larger than before as well as in other locations. Aside f rom the cysts, the hepatic parenchyma was unremarkable in appearance. There are no dilated ducts. The patient's gallbladder is rather large measuring nearly 9.5 cm in length. Gallstones are present inte rnally as before, though there is no sign of gallbladder wall thickening or inflammatory change aroun d it. The spleen, pancreas, adrenal glands, kidneys and abdominal aorta showed no acute findings. The visible portions of bowel showed no dilation, inflammatory change around it and no wall thickenin g. No air or free fluid was seen. There were no areas of abnormal enhancement in the abdomen. IMPRESSION: 1. Findings consistent with multiple hepatic cysts of varying sizes. Virtually all have increased in size since the [address] CT and the number has increased slightly. No other focal pathology was noted. 2. Large gallbladder containing multiple gallstones without evidence of wall thickening or inflammato ry change. POS: HOME
== END 2017-07-08 08:56 | disposition home or self-care (01) ==
LOC: BURCT 08:55
PROVIDERS: ATTEND Internal Medicine Gastroenterology
DX: K76.89 Other specified diseases of liver (principal); K80.20 Calculus of gallbladder without cholecystitis without obstruction
CPT/HCPCS: 74170

== ENCOUNTER 2018-12-23 14:01 | Outpatient (CLI) | payer OTHER ==
--- NOTE | 2018-12-23 19:58 | RAD ---
CERVICAL SPINE COMPLETE WITH FLEXION AND EXTENSION: 12/23/18 Comparison is made with an older study dated 08/27/16. No fracture or area of bony destruction was seen. Disc space narrowing is present at C4-C5, C5-C6 and C6-C7. While this was present before, the degree of narrowing is slightly greater at C4-C5 and C5-C6 than it was in 2017. Oblique views show no significant foraminal stenosis. There is some small osteo phytes protruding into the C5-C6 neural foramina, a little more so on the right than the left, but th ey may not be large enough to cause impingement. MRI would be more sensitive to such. The bulk of the spine showed no abnormal movement with flexion and extension, however, the distance b etween the dens and the anterior arch of C1 increases to nearly 5 mm with flexion. While this is not an optimal view of this area, it is concerning for atlantoaxial ligament laxity. On extension there i s essentially no distance between the two. The soft tissues are all normal in thickness. IMPRESSION: 1. Degenerative disc disease at multiple levels from C4 through C6. Slight increase in narrowin g over the two year interval. 2. While the area is not seen perfectly, there does appear to be abnormal motion at the atlantoa xial joint with the C1 to dens distance increasing to nearly 5 mm in flexion. This is of potential co ncern. I would do some repeat lateral views in flexion and extension centered on C2 to get a better v iew and if this holds up, then consider referring the patient to a neurosurgeon for evaluation if fur ther actions are needed. Code T POS: HOME
== END 2018-12-23 14:02 | disposition home or self-care (01) ==
LOC: BURRAD 14:01
PROVIDERS: ATTEND Internal Medicine Rheumatology
DX: M05.79 Rheumatoid arthritis with rheumatoid factor of multiple sites without organ or systems involvement (principal); M81.0 Age-related osteoporosis without current pathological fracture; M54.9 Dorsalgia, unspecified; M50.321 Other cervical disc degeneration at C4-C5 level
CPT/HCPCS: 72052

== ENCOUNTER 2019-01-03 10:43 | Outpatient (CLI) | payer OTHER ==
--- NOTE | 2019-01-03 22:44 | RAD ---
CERVICAL SPINE FLEXION AND EXTENSION VIEWS 01/03/19 Comparison is made with the 12/23 study that raised a question about the distance between the anterior arch of C1 and the dens. The patient returns today for flexion and extension lateral views centered a t the C2 level. This study confirms that there is indeed abnormal motion at the atlanto-axial joint. The distance bet ween the anterior arch of C1 and the dens in extension is negligible, 1 mm at most. With flexion it o pens up to almost 5 mm. This is an abnormal amount for an adult and implies laxity of the transverse ligament of the atlas. B ecause of this, the AP diameter of the spinal narrows with flexion, thereby reducing the space for th e passing spinal cord. Thus, this is a finding of significant concern. The prior C-spine report addressed disc space narrowing at various other levels. IMPRESSION: About 4 to 5 mm of abnormal motion at the atlanto-axial joint between extension and flexion. A referr al to a neurosurgeon is strongly recommended to determine if anything further need be done. Code T POS: HOME
== END 2019-01-03 10:44 | disposition home or self-care (01) ==
LOC: BURRAD 10:43
PROVIDERS: ATTEND Internal Medicine Rheumatology
DX: M05.79 Rheumatoid arthritis with rheumatoid factor of multiple sites without organ or systems involvement (principal); M81.0 Age-related osteoporosis without current pathological fracture; M54.9 Dorsalgia, unspecified
CPT/HCPCS: 72050

== ENCOUNTER 2019-05-12 14:08 | Outpatient (CLI) | payer OTHER ==
--- NOTE | 2019-05-12 18:31 | RAD ---
LEFT HAND THREE VIEWS: 05/12/19 The MCP joints show no gross narrowing or erosion. The carpal relationships are normal and there is b asically normal appearance of the intercarpal joints. No acute fracture was seen. One could argue for a small amount of periarticular osteoporosis in the PIP joints of the fingers and MCP joints, but th e finding is minimal. IMPRESSION: No acute bony findings. POS: HOME
--- NOTE | 2019-05-12 18:32 | RAD ---
RIGHT HAND THREE VIEWS: 05/12/19 Comparison is made with the left hand. The MCP joints were unremarkable. The intercarpal joints appe ar normal. No fracture was seen. IMPRESSION: No acute findings. POS: HOME
== END 2019-05-12 14:09 | disposition home or self-care (01) ==
LOC: BURRAD 14:08
DX: M06.9 Rheumatoid arthritis, unspecified (principal)